=== PATIENT | female | born 1955 | race Native Hawaiian/Other Pacific Islander ===

== ENCOUNTER 2017-02-10 10:27 | Observation (INO) | payer OTHER ==
[~2017-02-10] VITALS: Ht 165.1 cm; Wt 139.7 kg
[~2017-02-10 10:27] MED LIST: ACTOS15 MG PO; ALBU90AE13 INH; ALBUTEROL0.083 % IN; ALLERGY REL10 MG PO; ASPIRIN325 M1 PO; ATEN50TA36 PO; BUPROPN HCL300 MG PO; CELEXA20 MG PO; COLACE50 MG PO; CYCL10TA35 PO; DEXILANT60 M1 PO; DOCU100C10 PO; FISH OIL1000 M1 PO; FLUT0.05 NAS; FURO40TA93 PO; GLYB5TAB65 PO; HYDR25TA60 PO; HYDROCHLOROT50 MG PO; INSU100I2 SC; IPRASOL5 IN; IRON PO; LACTSYP31 PO; LAMISIL250 MG PO; LANTUS100 MG/ML SC; LISI5TAB10 PO; LORAZEPAM0.5 MG PO; LYRICA100 MG OR; METF500T PO; METO10TA26 PO; MOBIC15 MG PO; PANT40TA PO; PIOG30TA PO; PLAVIX75 MG PO; POLY3350 PO; POTA20TA4 PO; PRENATAL1 TA1 PO; ROPI0.5T PO; SINGULAIR10 MG PO; SPIR25TA66 PO; TRAM50TA PO; ZOCOR80 MG PO; [UNRECOGNIZED DRUG - OTHER] XX
[2017-02-10 11:16] VITALS: BP 131/74; TEMP 98.6; Ht 165.1 cm; Wt 139.7 kg
[2017-02-10 11:47] LABS: PLATELET COUNT 216 K/uL (152-353)
[2017-02-10 12:04] LABS: POTASSIUM 3.7 mmol/L (3.6-5.2)
[2017-02-10] MEDS ORDERED: FURO40TA93 PO (14:56)
[2017-02-10] MEDS ORDERED: ALEN70TA19 PO (14:58)
[2017-02-10] MEDS ORDERED: IRON325 MG PO (14:59)
[2017-02-10] MEDS ORDERED: NOVOLOG SC (15:04)
[2017-02-10] MEDS ORDERED: SPIRONOLACT25 MG PO (15:06)
[2017-02-10] MEDS ORDERED: METOCLOPRAM5 MG OR (15:09)
[2017-02-10] MEDS ORDERED: ZANTAC 75 PO (15:10)
[2017-02-10] MEDS ORDERED: LISI5TAB10 PO (15:12)
[2017-02-10] MEDS ORDERED: GEMFIBROZIL PO (15:16)
[2017-02-10 16:00] VITALS: BP 124/62; TEMP 98.6
[2017-02-10 20:00] VITALS: BP 149/64; TEMP 98.2
[2017-02-11] VITALS: BP 143/64; TEMP 98.2
[2017-02-11 04:00] VITALS: BP 148/75; TEMP 98.1
[2017-02-11 04:52] LABS: PLATELET COUNT 226 K/uL (152-353)
[2017-02-11 05:02] LABS: POTASSIUM 4.4 mmol/L (3.6-5.2)
[2017-02-11 08:00] VITALS: BP 160/77; TEMP 98.3
[2017-02-11 12:00] VITALS: BP 148/64; TEMP 97.8
[2017-02-11 16:00] VITALS: BP 104/44; TEMP 97.6
[2017-02-11 20:00] VITALS: BP 138/53; TEMP 97.4
[2017-02-12 00:21] VITALS: BP 119/53; TEMP 98.1
[2017-02-12 04:00] VITALS: BP 141/59; TEMP 98
[2017-02-12 05:18] LABS: PLATELET COUNT 227 K/uL (152-353)
[2017-02-12 05:29] LABS: POTASSIUM 3.9 mmol/L (3.6-5.2)
[2017-02-12 07:55] VITALS: BP 129/54; TEMP 98
[2017-02-12 12:00] VITALS: BP 134/59; TEMP 97.9
== END 2017-02-12 15:56 | disposition home or self-care (01) ==
LOC: MED/SURG 10:27
PROVIDERS: Internal Medicine; ADMIT Family Medicine
DX: J44.1 Chronic obstructive pulmonary disease with (acute) exacerbation (principal); R06.02 Shortness of breath; I10 Essential (primary) hypertension; E11.42 Type 2 diabetes mellitus with diabetic polyneuropathy; G40.802 Other epilepsy, not intractable, without status epilepticus
CPT/HCPCS: 36415; 80053; 82150; 82570; 82947; 82948; 83690; 83735; 83880; 84300; 85027; 93005; 94640; 94664; 94760; 96365; 96366; 96367; 96372; 96374; 96375; 99220; G0378; G0379; J1644; J1815; J1956; J2930

== ENCOUNTER 2017-06-16 11:35 | Outpatient (CLI) | payer OTHER ==
[~2017-06-16 11:35] MED LIST changes: +ALEN70TA19 PO; +GEMFIBROZIL PO; +IRON325 MG PO; +METOCLOPRAM5 MG OR; +NOVOLOG SC; +SPIRONOLACT25 MG PO; +ZANTAC 75 PO
[2017-06-16 12:18] LABS: PLATELET COUNT 225 K/uL (152-353)
[2017-06-16 12:40] LABS: POTASSIUM 4.2 mmol/L (3.6-5.2)
== END 2017-06-16 18:56 | disposition home or self-care (01) ==
LOC: LABW 11:35
PROVIDERS: Family Medicine
DX: L03.311 Cellulitis of abdominal wall (principal); I12.9 Hypertensive chronic kidney disease with stage 1 through stage 4 chronic kidney disease, or unspecified chronic kidney disease; E11.9 Type 2 diabetes mellitus without complications; N18.3 Chronic kidney disease, stage 3 (moderate)
CPT/HCPCS: 36415; 80053; 81000; 85027; 87040